=== PATIENT | male | born 1970 | race Two or more races ===

== ENCOUNTER 2020-06-20 16:52 | Inpatient (IN) | payer BC ==
[~2020-06-20] VITALS: Ht 177.8 cm; Wt 68.5 kg
[2020-06-20] MEDS ORDERED: IV NS 0.9% 1,000 ML BAG IV ONE (17:00)
[2020-06-20] MEDS ORDERED: LIDOCAINE 1%-EPI 1:100,000 20 ML VIAL ONE (17:05)
[2020-06-20 17:19] LABS: BASOPHILS % (AUTO) 0.3 % (0.0-2.0); EOSINOPHILS % (AUTO) 0.4 % (0.0-6.0); HEMATOCRIT 42 % (39-51); HEMOGLOBIN 13.7 g/dL (13.5-17.5); LYMPHOCYTES # (AUTO) 2.5 /CMM (0.8-4.8); LYMPHOCYTES % (AUTO) 21.2 % (20.0-44.0); MEAN CORPUSCULAR HGB CONC 33 g/dl (31.0-36.0); MEAN CORPUSCULAR VOLUME 91 fL (80-96); MONOCYTES # (AUTO) 0.5 /CMM (0.1-1.30); MONOCYTES % (AUTO) 3.8 % (2.0-12.0); NEUTROPHILS # (AUTO) 8.9 /CMM (1.8-8.9); NEUTROPHILS % (AUTO) 74.3 % (43.0-81.0); PLATELET COUNT (AUTO) 329 /CMM (150-450); RED BLOOD CELL COUNT(AUTO) 4.62 MIL/uL (4.5-6.0)
--- NOTE | 2020-06-20 17:20 | NUR ---
IV LINE ESTABLISHED BLOOD DRAWN AND SENT TO LAB.
[2020-06-20 17:29] LABS: CALCIUM, SERUM 9.4 mg/dL (8.5-10.1); CARBON DIOXIDE 24 mmol/L (21-32); CHLORIDE 97 mmol/L (98-107); CREATININE 0.9 mg/dL (0.6-1.3); GLUCOSE 337 mg/dL (74-106); POTASSIUM 3.6 mmol/L (3.5-5.1); SODIUM SERUM 137 mmol/L (136-145); UREA NITROGEN, BLOOD 9 mg/dL (7-18)
[2020-06-20 17:34] LABS: ALANINE AMINOTRANSFERASE 15 U/L (12-78); ALBUMIN 3.7 g/dL (3.4-5.0); ALCOHOL, BLOOD < 3 mg/dL (0-0); ALKALINE PHOSPHATASE 124 U/L (46-116); ASPARTATE AMINOTRANSFERASE 12 U/L (15-37); BILIRUBIN,DIRECT 0.1 mg/dL (0.0-0.2); BILIRUBIN,TOTAL 0.6 mg/dL (0.2-1.0)
[2020-06-20 17:35] LABS: ACETAMINOPHEN < 0 ug/ml (10-30)
--- NOTE | 2020-06-20 18:27 | NUR ---
covid swab done and sent to the lab
--- NOTE | 2020-06-20 19:21 | NUR ---
REPORT GIVEN TO MADYSON ZAZUETA FOR [facility]
--- NOTE | 2020-06-20 19:37 | NUR ---
AWAITING FOR PT TO PROVIDE URINE SAMPLE
--- NOTE | 2020-06-20 19:39 | NUR ---
RADIOLOGY AT BEDSIDE
--- NOTE | 2020-06-20 20:11 | NUR ---
URINE COLLECTED, SENT TO LAB.
[2020-06-20 20:15] LABS: BILIRUBIN,URINE SMALL (NEGATIVE); COLOR,URINE YELLOW (YELLOW); LEUKOCYTE ESTERASE ,URINE Negative (NEGATIVE); NITRITE, URINE Negative (NEGATIVE); PROTEIN,URINE Trace mg/dl (NEGATIVE); UGLUCOSE 500 MG/DL mg/dL (NEGATIVE); UROBILINOGEN,URINE 0.2 EU/dL (0.2)
[2020-06-20 20:27] LABS: BACTERIA,URINE Few /HPF (None Seen); MUCUS,URINE Many /LPF (None Seen); RBC,URINE 0-2 /HPF (0-2); SQUAMOUS EPITHELIAL CELL,UR Few /HPF (None Seen); WBC,URINE 0-2 /HPF (0-3)
--- NOTE | 2020-06-20 20:44 | NUR ---
SPOKE TO PT'S BROTHER REGARDING PLAN OF CARE. PT GAVE CONSENT.
--- NOTE | 2020-06-20 23:09 | NUR ---
REPORT GIVEN TO RN FOR [facility].
--- NOTE | 2020-06-20 23:44 | NUR ---
PT TRANSFERED PER ACLS PROTOCOL
[2020-06-21] VITALS: BP 129/79
[2020-06-21 00:03] VITALS: BP 129/79
--- NOTE | 2020-06-21 00:52 | NUR ---
RN NOTES PT ALERT ORIENTED X4 NO PAIN OR DISCOMFORT NOTED OR REPORTED AT THIS TIME. PT ON ROOM AIR TOLERATING WELL. PT ON TELE MONITOR WITH SR. PT HAS SITTER AT BEDSIDE. ALL NURSING NEEDS MET AT THIS TIME.PT HAS IV ACCESS ON THE RIGHT HAND 20G FLUSHING WELL INTACT TO REDNESS OF SWELLING AT SITE. PT ABDOMEN IS SOFT NON TENDER BOWEL SOUNDS HEARD IN ALL 4 QUADRANTS UPON AUSCULTATION. PT DENIES ANY SUICIDAL IDEATION AT THIS TIME. PT STATED " NOT RIGHT AT THIS MOMENT... NO I DON'T WANT TO " PT HAS A SELF INFLICTED LEFT WRIST LACERATION WITH PRESSURE DRESSING APPLIED NO PHOTOS WERE ABLE TO BE TAKEN AT THIS TIME. PT ORIENTED TO ROOM SAFETY MEASURES FOLLOWED. WILL CONTINUE TO MONITOR.
[2020-06-21] MEDS ORDERED: MAG HYDROX/AL HYDROX/SIMETH 30 ML UDC PO PRN (03:00)
[2020-06-21] MEDS ORDERED: ONDANSETRON HCL/PF 4 MG/2 ML VIAL IVP PRN (03:00)
[2020-06-21] MEDS ORDERED: Z GUARD REMEDY 2 OZ OINT TP PRN (03:00)
[2020-06-21] MEDS ORDERED: ACETAMINOPHEN 325 MG TABLET PO PRN (03:00)
[2020-06-21] MEDS ORDERED: DEXTROSE 50%-WATER 50 ML DISP.SYRIN IV PRN (03:00)
[2020-06-21] MEDS ORDERED: MAGNESIUM HYDROXIDE 30 ML UDC PO PRN (03:00)
[2020-06-21] MEDS ORDERED: ZOLPIDEM TARTRATE 5 MG TABLET PO PRN (03:00)
[2020-06-21 04:00] VITALS: BP 136/84
[2020-06-21] MEDS: INSULIN REGULAR, HUMAN 100 UNIT/ML 3 ML VIAL SQ PRN ×4 (06:56→21:44)
[2020-06-21] MEDS: BLOOD SUGAR DIAGNOSTIC 1 EACH STRIP IN SCH ×4 (06:56→21:42)
--- NOTE | 2020-06-21 07:00 | NUR ---
RN NOTES PT ALERT ORIENTED X4 NO PAIN OR DISCOMFORT NOTED OR REPORTED AT THIS TIME. PT ON ROOM AIR TOLERATING WELL. PT ON TELE MONITOR WITH SR. PT HAS SITTER AT BEDSIDE. ALL NURSING NEEDS MET AT THIS TIME.PT HAS IV ACCESS ON THE RIGHT HAND 20G FLUSHING WELL INTACT TO REDNESS OF SWELLING AT SITE. PT DENIES ANY SUICIDAL IDEATION AT THIS TIME. PT STATED " NO I DON'T WANT TO ANYMORE" PT HAS A SELF INFLICTED LEFT WRIST LACERATION WITH PRESSURE DRESSING APPLIED. PT ORIENTED TO ROOM SAFETY MEASURES FOLLOWED. WILL CONTINUE TO MONITOR.
--- NOTE | 2020-06-21 08:00 | NUR ---
RN OPENING NOTE RECEIVED PATIENT IN BED, AO X 2, ABLE TO RESPONDS ALL STIMULI. SKIN IS WARM TO TOUCH, KEEP CLEAN/DRY, INTACT IV SITE. RESPIRATORY EVEN AND UNLABORED WITH OXYGEN AT 2PLM. KEPT ELEVATED HOB FOR ENSURE AIRWAY AND ASPIRATION PRECAUTION, ALSO LOWEST BED POSITION FOR SAFETY. CALL LIGHT WITHIN REACH, WILL CONTINUE TO MONITOR. Addendum: 06/21/20 at 0809 by KYLE AGRAWAL RN ERROR
--- NOTE | 2020-06-21 08:10 | NUR ---
RN OPENING NOTE RECEIVED PATIENT IN BED RESTING, AO X 4, ABLE TO RESPONDS ALL STIMULI. SKIN IS WARM TO TOUCH, KEEP CLEAN/DRY, INTACT IV SITE. RESPIRATORY EVEN AND UNLABORED OM ROOM AIR. NO IS/IH OBSERVED AT THIS TIME, SITTER AT BED SIDE. KEPT ELEVATED HOB FOR ENSURE AIRWAY AND ASPIRATION PRECAUTION, ALSO LOWEST BED POSITION FOR SAFETY. CALL LIGHT WITHIN REACH, WILL CONTINUE TO MONITOR.
[2020-06-21] MEDS ORDERED: ETAN50PE3 SQ (08:40)
[2020-06-21] MEDS ORDERED: TRAZ-252 PO (08:40)
[2020-06-21] MEDS ORDERED: QUET200T PO (08:40)
[2020-06-21] MEDS ORDERED: CLON0.5T4 PO (08:40)
[2020-06-21] MEDS ORDERED: clonazePAM 0.5 MG TABLET PO PRN (10:00)
--- NOTE | 2020-06-21 18:16 | NUR ---
RN CLOSE NOTE PATIENT IN BED, AO X 4, DOES NO APPEARS DISTRESS OR PAIN. SKIN IS WARM TO TOUCH, KEEP CLEAN/DRY, INTACT IV SITE ON RIGHT BOND G 20 WITH SL. RESPIRATORY EVEN AND UNLABORED ON ROOM AIR. SITTER AT BEDSIDE, NO SI/HI OBSERVED DURING DAYTIME. KEPT ELEVATED HOB FOR ENSURE AIRWAY AND ASPIRATION PRECAUTION AND LOWEST BED POSITION FOR SAFETY. CALL LIGHT WITHIN REACH, WILL CONTINUE TO MONITOR.
[2020-06-21] MEDS: DIVALPROEX SODIUM 250 MG TABLET.DR PO SCH (18:31)
--- NOTE | 2020-06-21 19:25 | NUR ---
RN NOTES PATIENT IN BED, AO X 4, DOES NO APPEARS DISTRESS OR PAIN. SKIN IS WARM TO TOUCH, KEEP CLEAN/DRY, INTACT IV SITE ON RIGHT BOND G 20 WITH SL. RESPIRATORY EVEN AND UNLABORED ON ROOM AIR. SITTER AT BEDSIDE, NO SI/HI OBSERVED AT THIS TIME PT STATED " IM FEELING BETTER TODAY". KEPT ELEVATED HOB FOR ENSURE AIRWAY AND ASPIRATION PRECAUTION AND LOWEST BED POSITION FOR SAFETY. CALL LIGHT WITHIN REACH, WILL CONTINUE TO MONITOR.
[2020-06-21 20:00] VITALS: BP 116/66
[2020-06-21 22:00] VITALS: BP 116/78
[2020-06-21] MEDS ORDERED: QUETIAPINE FUMARATE 100 MG TABLET PO SCH (22:00)
[2020-06-21] MEDS ORDERED: TRAZODONE 50 MG TABLET PO SCH (22:00)
[2020-06-22] VITALS: BP_SYST 110; BP_SYST 120; BP_DIAS 60; BP_DIAS 75
[2020-06-22] MEDS: HYDROCODONE/APAP 5/325MG TABLET PO PRN ×3 (01:08→15:51)
[2020-06-22] MEDS ORDERED: LORAZEPAM INJ 2 MG/ML VIAL IV PRN (01:30)
[2020-06-22 04:00] VITALS: BP 98/65
[2020-06-22 04:19] VITALS: BP 101/69
--- NOTE | 2020-06-22 06:32 | NUR ---
RN NOTES PATIENT IN BED, AO X 4, DOES NO APPEARS DISTRESS OR PAIN. SKIN IS WARM TO TOUCH, KEEP CLEAN/DRY, INTACT IV SITE ON RIGHT BOND G 20 WITH SL. RESPIRATORY EVEN AND UNLABORED ON ROOM AIR. SITTER AT BEDSIDE, NO SI/HI OBSERVED AT THIS TIME.. KEPT ELEVATED HOB FOR ENSURE AIRWAY AND ASPIRATION PRECAUTION AND LOWEST BED POSITION FOR SAFETY. CALL LIGHT WITHIN REACH, WILL ENDORSE CARE TO DAY SHIFT NURSE.
[2020-06-22] MEDS: BLOOD SUGAR DIAGNOSTIC 1 EACH STRIP IN SCH ×2 (06:51→11:32)
[2020-06-22] MEDS: INSULIN REGULAR, HUMAN 100 UNIT/ML 3 ML VIAL SQ PRN ×2 (06:52→11:32)
[2020-06-22 07:20] LABS: BASOPHILS # (AUTO) 0.1 /CMM (0.0-0.2); BASOPHILS % (AUTO) 0.6 % (0.0-2.0); HEMATOCRIT 34 % (39-51); HEMOGLOBIN 10.8 g/dL (13.5-17.5); LYMPHOCYTES # (AUTO) 5.2 /CMM (0.8-4.8); MEAN CORPUSCULAR HGB CONC 32 g/dl (31.0-36.0); MEAN CORPUSCULAR VOLUME 94 fL (80-96); MONOCYTES # (AUTO) 0.6 /CMM (0.1-1.30); MONOCYTES % (AUTO) 6.3 % (2.0-12.0); NEUTROPHILS # (AUTO) 3.9 /CMM (1.8-8.9); NEUTROPHILS % (AUTO) 39.1 % (43.0-81.0); PLATELET COUNT (AUTO) 218 /CMM (150-450); RED BLOOD CELL COUNT(AUTO) 3.56 MIL/uL (4.5-6.0); WHITE BLOOD COUNT (AUTO) 9.9 K/uL (4.3-11.0)
[2020-06-22] MEDS: DIVALPROEX SODIUM 250 MG TABLET.DR PO SCH (08:16)
[2020-06-22 08:19] LABS: CALCIUM, SERUM 8.6 mg/dL (8.5-10.1); CREATININE 0.7 mg/dL (0.6-1.3); PHOSPHORUS 4.6 mg/dL (2.5-4.9); POTASSIUM 3.9 mmol/L (3.5-5.1)
[2020-06-22 08:29] LABS: THYROID STIMULATING HORMONE 2.141 uIU/mL (0.358-3.74)
--- NOTE | 2020-06-22 10:27 | NUR ---
WOUND CARE CONSULT: PT PRESENTS WITH LEFT WRIST SUTURED LACERATION AND SMALL OPEN AREA DISTAL TO SUTURED AREA, PRESENT ON ADMISSION. RECOMMEND SURGICAL CONSULT. DR MAX NOTIFIED OF CONSULT REQUEST. NO ACTIVE BLEEDING NOTED AT THIS TIME. AREA PROTECTED WITH FOAM DRESSING AND KERLIX WRAP TIL SEEN BY SURGEON. MD IN AGREEMENT WITH PLAN OF CARE.
[2020-06-22] MEDS ORDERED: QUETIAPINE FUMARATE 25 MG TABLET PO SCH (13:00)
[2020-06-22] MEDS ORDERED: DIVALPROEX SODIUM 500 MG TABLET.DR PO SCH (22:00)
[2020-06-23] MEDS ORDERED: INSU100V3 SQ (07:25)
[2020-06-23] MEDS ORDERED: MAG30ORA PO (07:25)
[2020-06-23] MEDS ORDERED: HYDR-4209 PO (07:25)
[2020-06-23] MEDS ORDERED: DIVA-76 PO (07:25)
[2020-06-23] MEDS ORDERED: BLOO-668 IN (07:25)
[2020-06-23] MEDS ORDERED: QUET25TA PO (07:25)
[2020-06-23] MEDS ORDERED: ALLA266C2 TP (07:25)
[2020-06-23] MEDS ORDERED: ACET-868 PO (07:25)
[2020-06-23] MEDS ORDERED: MAGN400O6 PO (07:25)
[2020-06-23] MEDS ORDERED: DIVA-78 PO (07:25)
[2020-06-23] MEDS ORDERED: DEXT50DI8 IV (07:25)
[2020-06-23] MEDS ORDERED: DIVALPROEX SODIUM 250 MG TABLET.DR PO SCH (08:00)
== END 2020-06-22 15:47 | DRG 605 ==
LOC: ER 16:55 → TELE 23:06 → MED 06-22 14:03 → GPS 06-22 15:34 → MED 06-22 15:39
PROVIDERS: ADMIT Internal Medicine; ATTEND Internal Medicine
PROC: 0HQEXZZ Repair Left Lower Arm Skin, External Approach (ICD-10-PCS; principal; 2020-06-20)
DX: S61.512A Laceration without foreign body of left wrist, initial encounter (principal); R45.851 Suicidal ideations; X78.1XXA Intentional self-harm by knife, initial encounter; Y92.039 Unspecified place in apartment as the place of occurrence of the external cause; M45.9 Ankylosing spondylitis of unspecified sites in spine; F41.9 Anxiety disorder, unspecified; F31.9 Bipolar disorder, unspecified; Z20.822 Contact with and (suspected) exposure to COVID-19
CPT/HCPCS: 36415; 70450-TC; 71045-TC; 80048-TC; 80061-TC; 80076-TC; 81001; 82962-TC; 83735-TC; 84100-TC; 84443-TC; 85025-TC; 85730-TC; 87081-TC; A6403; C9803; G0378; G0480; J1815; J3490; J7030

== ENCOUNTER 2020-06-22 15:43 | Inpatient (IN) | payer BC, OTHER ==
[~2020-06-22] VITALS: Ht 177.8 cm; Wt 68.5 kg
[~2020-06-22 15:43] MED LIST: CLON0.5T4 PO; ETAN50PE3 SQ; QUET200T PO; TRAZ-252 PO
[2020-06-22] MEDS ORDERED: MAG HYDROX/AL HYDROX/SIMETH 30 ML UDC PO PRN (16:30)
[2020-06-22] MEDS ORDERED: MAGNESIUM HYDROXIDE 30 ML UDC PO PRN (16:30)
[2020-06-22] MEDS ORDERED: LORAZEPAM 0.5 MG TABLET PO PRN (16:30)
[2020-06-22] MEDS ORDERED: BLOOD SUGAR DIAGNOSTIC 1 EACH STRIP IN ONE (16:30)
--- NOTE | 2020-06-22 18:24 | NUR ---
ADMITTED A 50Y/O MALE FROM MED SURGE UNIT . PER 5150 HOLD PATIENT ADMITTED TO [facility] UNIT DUE TO SELF INFLICTED WOUND TO LEFT FA . PATIENT ADMITTING DX BIPOLAR DISORDER . HX OF ANKYLOSING SPONDYLITIS . UPON FACE TO FACE EVALUATION, PATIENT APPEARED ALERT AND ORIENTED X 3, CALM, MOOD DEPRESSED,PATIENT DENIES SUICIDAL THOUGHTS AT THIS TIME.PATIENT HAS WOUND IN HIS LEFT FOREARM WITH 12 SUTURES ,RIGHT ARM DEFORM , NO AGITATION AT THIS TIME ,FLAT AFFECT . HEAD TO TOE ASSESSMENT DONE. PATIENT SIGNED ALL CONSENT PAPER WORKS. NO SOB, NO ACUTE DISTRESS, BREATHING EVEN AND UNLABORED, NO S/S OF PAIN AND DISCOMFORT. PATIENT IS UNDER THE CARE OF DR. FRIAS AND DR. CHENEY AND AWARE OF ADMISSION WITH ADMISSION ORDERS . BELONGINGS COLLECTED FOR CONTRABAND CHECK. NOTIFIED DR. CHENEY TO RECONCILE MEDICATION. NOTIFIED RESPONSIBLE REPUBLICAN OF THE ADMISSION. KEPT CLEAN, DRY AND COMFORTABLE. WILL CONTINUE TO MONITOR Q15 MINUTES FOR SAFETY.
[2020-06-22 20:08] VITALS: BP 98/55
--- NOTE | 2020-06-22 21:11 | NUR ---
GPS-RN NOTE: PATIENT BLOOD SUGAR WAS 267MG/DL AT 1745 PER AM SHIFT REPORT. SPOKE WITH DR. GREY ORDERS OBTAINED TO START MODERATE SLIDING SCALE ACHS AND CHECK HGB A1C IN AM, NOTED AND CARRIED OUT. Addendum: 06/22/20 at 2221 by ORTEGA JIANG RN DR. GREY ALSO MADE AWARE OF MED RECON TO RECONCILE.
[2020-06-22] MEDS ORDERED: DEXTROSE 50%-WATER 50 ML DISP.SYRIN IV PRN (21:30)
[2020-06-22] MEDS: BLOOD SUGAR DIAGNOSTIC 1 EACH STRIP VI SCH (22:02)
[2020-06-22] MEDS: *INSULIN REGULAR(HUMULIN R)HUM 100 UNIT/ML VIAL SQ PRN (22:05)
[2020-06-23] MEDS ORDERED: INSU100V3 SQ (07:25)
[2020-06-23] MEDS ORDERED: QUET25TA PO (07:25)
[2020-06-23] MEDS ORDERED: ACET-868 PO (07:25)
[2020-06-23] MEDS ORDERED: HYDR-4209 PO (07:25)
[2020-06-23] MEDS ORDERED: DIVA-78 PO (07:25)
[2020-06-23] MEDS ORDERED: DEXT50DI8 IV (07:25)
[2020-06-23] MEDS ORDERED: DIVA-76 PO (07:25)
[2020-06-23] MEDS ORDERED: ALLA266C2 TP (07:25)
[2020-06-23] MEDS ORDERED: MAGN400O6 PO (07:25)
[2020-06-23] MEDS ORDERED: BLOO-668 IN (07:25)
[2020-06-23] MEDS ORDERED: MAG30ORA PO (07:25)
[2020-06-23] MEDS: BLOOD SUGAR DIAGNOSTIC 1 EACH STRIP VI SCH ×3 (07:40→16:46)
[2020-06-23 08:00] VITALS: BP 116/71
[2020-06-23 08:03] LABS: CHOLESTEROL 216 mg/dL (<200); HDL CHOLESTEROL 39 mg/dL (40-60); LDL 148 mg/dL (0-99); TRIGLYCERIDES 120 mg/dL (30-150)
[2020-06-23] MEDS: INSULIN REGULAR, HUMAN 100 UNIT/ML 3 ML VIAL SQ PRN ×3 (08:03→22:15)
[2020-06-23 08:49] LABS: ALBUMIN 3.3 g/dL (3.4-5.0); BILIRUBIN,TOTAL 0.5 mg/dL (0.2-1.0); CALCIUM, SERUM 8.9 mg/dL (8.5-10.1); CREATININE 0.7 mg/dL (0.6-1.3); POTASSIUM 3.8 mmol/L (3.5-5.1); TOTAL PROTEIN, SERUM 7.2 g/dL (6.4-8.2)
--- NOTE | 2020-06-23 10:41 | NUR ---
WOUND CARE CONSULT: PT PRESENTS WITH SUTURED LACERATION TO LEFT WRIST AND DISTAL OPEN AREA, PRESENT ON ADMISSION. PT SEEN BY TAHIR CAMERON SURGICAL PCassandraACassandra NEW WOUND CARE ORDERS RECEIVED AND DISCUSSED WITH NURSING STAFF. IN AGREEMENT WITH PLAN OF CARE.
[2020-06-23] MEDS: *INSULIN REGULAR(HUMULIN R)HUM 100 UNIT/ML VIAL SQ PRN (12:04)
[2020-06-23] MEDS: DIVALPROEX SODIUM 250 MG TABLET.DR PO SCH ×2 (12:55→16:34)
[2020-06-23] MEDS: QUETIAPINE FUMARATE 25 MG TABLET PO SCH ×2 (12:55→16:34)
[2020-06-23 16:00] VITALS: BP 107/75
[2020-06-23] MEDS ORDERED: DEXTROSE 50%-WATER 50 ML DISP.SYRIN IV PRN (19:30)
[2020-06-23 20:56] VITALS: BP 125/77
[2020-06-23] MEDS: TEMAZEPAM 7.5 MG CAPSULE PO PRN (21:13)
--- NOTE | 2020-06-23 21:22 | NUR ---
GPS RN NOTES: PT. REQUESTED SLEEP MED D/T INSOMNIA. RESTORIL 7.5MG/1TAB GIVEN PO PRN ORDERED AT 2112. WILL CONTINUE TO MONITOR.
[2020-06-23] MEDS: BLOOD SUGAR DIAGNOSTIC 1 EACH STRIP IN SCH (22:09)
[2020-06-23] MEDS: QUETIAPINE FUMARATE 100 MG TABLET PO SCH (22:10)
--- NOTE | 2020-06-24 06:40 | NUR ---
GPS RN CLOSING NOTES: PATIENT IS LAYING COMFORTABLY ON BED SLEEPING. PATIENT SLEPT 9HRS THIS SHIFT. MED COMPLIANT THIS SHIFT. NO S/S OF DISTRESS. RESPIRATION EVEN AND UNLABORED WITH EQUAL RISE AND FALL OF THE CHEST ON ROOM AIR. ALL PATIENT CARE NEEDS HAVE BEEN MET ANTICIPATED. WILL CONTINUE TO MONITOR FOR SAFETY, MOOD AND BEHAVIOR AND ENDORSE TO AM SHIFT.
[2020-06-24] MEDS: BLOOD SUGAR DIAGNOSTIC 1 EACH STRIP IN SCH ×4 (07:20→22:17)
[2020-06-24] MEDS: INSULIN REGULAR, HUMAN 100 UNIT/ML 3 ML VIAL SQ PRN ×4 (07:46→22:32)
[2020-06-24 08:00] VITALS: BP 119/77
[2020-06-24] MEDS: QUETIAPINE FUMARATE 25 MG TABLET PO SCH ×3 (08:26→16:35)
[2020-06-24] MEDS: DIVALPROEX SODIUM 250 MG TABLET.DR PO SCH ×3 (08:26→16:35)
--- NOTE | 2020-06-24 08:55 | NUR ---
RN NOTE-DRESSING CHANGE. REMOVED OLD DRESSING, SEROUS DRAINAGE PRESENT, MINIMAL DISCOMFORT STATED. NO DEHISCENCE, SUTURES INTACT AT PRESENT, NO ERYTHEMA, NO EDEMA, NO PURULENCE OR ODOR. PETROLEUM DSG APPLIED, TELFA AND WRAPPED SECURELY. TOLERATED WELL.
--- NOTE | 2020-06-24 09:00 | NUR ---
RN NOTE-PT ALERT ORIENTED TO PERSON PLACE PURPOSE DENIES ALL, BLUNTED AFFECT SEEMS PREOCCUPIED REFUSES TO DISCUSS SUICIDE ATTEMPT, PO INTAKE GOOD, MED COMPLIANT, DRSG CHANGE COMPLETED
--- NOTE | 2020-06-24 12:02 | NUR ---
Family Contact: SW called the pts uncle, Dr. Calloway ([phone]), and left a voicemail stating that the SW would like to speak to him regarding the pts discharge plan.
[2020-06-24] MEDS: ACETAMINOPHEN 325 MG TABLET PO PRN (15:31)
--- NOTE | 2020-06-24 15:32 | NUR ---
RN NOTE- C/O PAIN TO LEFT WRIST. TYLENOL 650 MG GIVEN
--- NOTE | 2020-06-24 15:50 | NUR ---
Initial Discharge Plan: Pt currently resides at home with his mother and father located at [address] [place] [address], [place] [address]; ([phone]). Per pt, he would like to return. SW will work with the pt and the MD regarding appropriate discharge planning. SW will form a safe and proper discharge.
[2020-06-24 16:00] VITALS: BP 112/71
[2020-06-24 20:25] VITALS: BP 101/62
[2020-06-24] MEDS: QUETIAPINE FUMARATE 100 MG TABLET PO SCH (22:04)
[2020-06-24] MEDS: TEMAZEPAM 7.5 MG CAPSULE PO PRN (22:34)
--- NOTE | 2020-06-24 22:35 | NUR ---
GPS RN NOTES: PT. REQUESTED SLEEP MED D/T INSOMNIA. RESTORIL 7.5MG/1TAB GIVEN PO PRN ORDERED AT 4. WILL CONTINUE TO MONITOR.
--- NOTE | 2020-06-25 03:50 | NUR ---
GPS RN NOTES: PATIENT BLOOD SUGAR HAS REMAINED MOSTLY IN THE 300'S. BRANDYN LOCOMOTIVE FIRER, CHANGED PATIENT SLIDING SCALE FROM MODERATE TO AGGRESSIVE ACHS AND LANTUS 10 UNITS HS. WILL CONTINUE TO MONITOR.
[2020-06-25] MEDS ORDERED: DEXTROSE 50%-WATER 50 ML DISP.SYRIN IV PRN (04:00)
--- NOTE | 2020-06-25 06:29 | NUR ---
GPS RN CLOSING NOTES: PATIENT IS CURRENTLY SLEEPING. PATIENT SLEPT 7HRS THIS SHIFT. MED COMPLIANT THIS SHIFT. NO S/S OF DISTRESS. RESPIRATION EVEN AND UNLABORED WITH EQUAL RISE AND FALL OF THE CHEST ON ROOM AIR. ALL PATIENT CARE NEEDS HAVE BEEN MET ANTICIPATED. BED IN LOWEST POSITION AND LOCKED WITH SIDE RAILS UP X2. WILL CONTINUE TO MONITOR FOR SAFETY, MOOD AND BEHAVIOR AND ENDORSE TO AM SHIFT.
[2020-06-25] MEDS: BLOOD SUGAR DIAGNOSTIC 1 EACH STRIP IN SCH ×4 (07:34→21:47)
[2020-06-25 08:00] VITALS: BP 115/67
[2020-06-25] MEDS: INSULIN REGULAR, HUMAN 100 UNIT/ML 3 ML VIAL SQ PRN ×3 (08:08→17:39)
[2020-06-25] MEDS: DIVALPROEX SODIUM 250 MG TABLET.DR PO SCH ×3 (08:09→17:02)
[2020-06-25] MEDS: QUETIAPINE FUMARATE 25 MG TABLET PO SCH ×3 (08:09→17:02)
--- NOTE | 2020-06-25 10:29 | NUR ---
UR Note: RAJAN called pts [employer] shoe caser, Harini ([phone] EXT [phone]), and provided a clinical on her voicemail to request additional authorization. Addendum: 06/29/20 at 1641 by RAJAN SIMPSON [id number]
--- NOTE | 2020-06-25 11:29 | NUR ---
UR Note: SW called pts [facility] major case detective, Harini ([phone] EXT [phone]), in response to her voicemail. SW provided additional information on the pt on her voicemail and is awaiting a call back on the pts authorization.
--- NOTE | 2020-06-25 12:09 | NUR ---
UR Note: Pts [employer] case management specialist, Harini ([phone] EXT [phone]), called the SW and authorized an additional 2 days from 06/25-06/26. She stated to call her coworker, Mari, for review at ([phone] ext [phone]) if additional authorization is needed. She stated that if the pt discharges then call the discharge line at [phone].
--- NOTE | 2020-06-25 13:32 | NUR ---
Group Note: SW encouraged the pt to attend group therapy on 06/25/20 at 1pm regarding the topic of discharge planning and the pt refused to attend. Pt has been isolating in his room and appears to be guarded. SW conducted an individual intervention with the pt and discussed his discharge plan back to his home. SW inquired about his family and the pt stated that he spoke with his brother and that he is aware his father was discharged to a rehabilitation center. SW then inquired about the pts suicidal ideation/attempt and the pt stated, "I do not want to go there." Pt refused to acknowledge his attempt and refused to think about what caused it. SW informed him that will hinder his treatment and that being in the hospital is the safest place for him to acknowledge his thoughts. Pt remained silent and guarded.
[2020-06-25 16:00] VITALS: BP 116/64
--- NOTE | 2020-06-25 17:20 | NUR ---
Dr. Parker and Dione made aware of the latest BP of 98/51 and SC 90 and with orders. Addendum: 06/25/20 at 1806 by ZEFERINO FERGUSON RN Above documentation is not for this pt.
[2020-06-25 19:45] VITALS: BP 106/68
[2020-06-25 20:00] VITALS: BP 106/68
--- NOTE | 2020-06-25 21:48 | NUR ---
RN NOTE PATIENT'S VITALS ARE 113/68, 76, 18, 97.5, 97% AT RA. SEROQUEL 425 MG PO ADMINISTERED. WILL CONTINUE TO MONITOR THE PATIENT FOR ANY CHANGES.
[2020-06-25] MEDS ORDERED: QUETIAPINE FUMARATE 100 MG TABLET PO SCH (22:00)
[2020-06-25] MEDS: INSULIN GLARGINE, 100 UNIT/ML CARTRIDGE SQ SCH (22:37)
[2020-06-25] MEDS: *INSULIN REGULAR(HUMULIN R)HUM 100 UNIT/ML VIAL SQ PRN (22:40)
[2020-06-25] MEDS: TEMAZEPAM 7.5 MG CAPSULE PO PRN (23:06)
--- NOTE | 2020-06-25 23:09 | NUR ---
GPS RN NOTE: INSOMNIA PT. REQUESTED SLEEPING MEDICINE D/T SLEEPLESSNESS. RESTORIL 7.5MG 1 CAP GIVEN PO PRN ORDERED. WILL CONTINUE TO MONITOR.
[2020-06-26 08:00] VITALS: BP 113/73
[2020-06-26] MEDS: BLOOD SUGAR DIAGNOSTIC 1 EACH STRIP IN SCH ×4 (08:08→22:06)
[2020-06-26] MEDS: DIVALPROEX SODIUM 250 MG TABLET.DR PO SCH ×3 (08:18→16:06)
[2020-06-26] MEDS: QUETIAPINE FUMARATE 25 MG TABLET PO SCH ×3 (08:18→16:06)
[2020-06-26] MEDS: INSULIN REGULAR, HUMAN 100 UNIT/ML 3 ML VIAL SQ PRN ×3 (08:21→17:27)
--- NOTE | 2020-06-26 10:47 | NUR ---
UR Note: RAJAN called [facility] clinical case manager, Mari ([phone]), who is covering for Harini, and left a clinical on her voicemail requesting additional authorization to cover the and Monday if possible.
--- NOTE | 2020-06-26 11:42 | NUR ---
RN-NOTES DID WOUND DRESSING CHANGE ON LEFT HAND WOUND AND COMPLAINED OF PAIN. OFFERED TYLENOL BUT PATIENT STATED" I'M OK I DON'T NEED IT".
[2020-06-26 16:00] VITALS: BP 120/77
[2020-06-26 20:05] VITALS: BP 115/65
[2020-06-26] MEDS: QUETIAPINE FUMARATE 100 MG TABLET PO SCH (21:44)
[2020-06-26] MEDS: INSULIN GLARGINE, 100 UNIT/ML CARTRIDGE SQ SCH (22:14)
[2020-06-26] MEDS: *INSULIN REGULAR(HUMULIN R)HUM 100 UNIT/ML VIAL SQ PRN (22:20)
[2020-06-26] MEDS: TEMAZEPAM 7.5 MG CAPSULE PO PRN (22:24)
--- NOTE | 2020-06-26 22:34 | NUR ---
GPS RN NOTES: PT. REQUESTED SLEEP MED D/T INSOMNIA. RESTORIL 7.5MG/1TAB GIVEN PO PRN ORDERED AT 4 WILL CONTINUE TO MONITOR.
[2020-06-27 06:42] LABS: BASOPHILS % (AUTO) 0.2 % (0.0-2.0); EOSINOPHILS % (AUTO) 2.9 % (0.0-6.0); HEMATOCRIT 30 % (39-51); HEMOGLOBIN 10.1 g/dL (13.5-17.5); LYMPHOCYTES # (AUTO) 2.9 /CMM (0.8-4.8); LYMPHOCYTES % (AUTO) 34.9 % (20.0-44.0); MEAN CORPUSCULAR HGB CONC 33 g/dl (31.0-36.0); MEAN CORPUSCULAR VOLUME 93 fL (80-96); MONOCYTES # (AUTO) 0.5 /CMM (0.1-1.30); MONOCYTES % (AUTO) 6.1 % (2.0-12.0); NEUTROPHILS # (AUTO) 4.7 /CMM (1.8-8.9); NEUTROPHILS % (AUTO) 55.9 % (43.0-81.0); PLATELET COUNT (AUTO) 296 /CMM (150-450); RED BLOOD CELL COUNT(AUTO) 3.27 MIL/uL (4.5-6.0); WHITE BLOOD COUNT (AUTO) 8.4 K/uL (4.3-11.0)
[2020-06-27 07:10] LABS: ALBUMIN 2.9 g/dL (3.4-5.0); BILIRUBIN,TOTAL 0.6 mg/dL (0.2-1.0); CALCIUM, SERUM 8.8 mg/dL (8.5-10.1); CREATININE 0.7 mg/dL (0.6-1.3); POTASSIUM 3.9 mmol/L (3.5-5.1); TOTAL PROTEIN, SERUM 6.7 g/dL (6.4-8.2)
[2020-06-27 08:17] VITALS: BP 103/64
[2020-06-27] MEDS: BLOOD SUGAR DIAGNOSTIC 1 EACH STRIP IN SCH ×4 (08:55→21:58)
[2020-06-27] MEDS: INSULIN REGULAR, HUMAN 100 UNIT/ML 3 ML VIAL SQ PRN ×3 (09:09→17:27)
[2020-06-27] MEDS: QUETIAPINE FUMARATE 25 MG TABLET PO SCH ×3 (09:32→17:41)
[2020-06-27] MEDS: DIVALPROEX SODIUM 250 MG TABLET.DR PO SCH ×3 (09:32→17:41)
[2020-06-27 15:58] VITALS: BP 97/51
--- NOTE | 2020-06-27 18:40 | NUR ---
COOPERative and med compliant.
--- NOTE | 2020-06-27 20:39 | NUR ---
RN NOTES: EXPLAINED TO HIM WE NEED TO CHANGE HIS DRESSING ON THE LEFT WRIST, HE AGREED,DRESSING CHANGE, TOLERATED, NO SIGN OF AGITATION, VERY COOPERATIVE. Addendum: 06/27/20 at 2041 by JESICA GUTIERREZ RN ADDED NOTES: HE ASK FOR SOME SNACK, DIABETIC DIET OBSERVED, ASPIRATION PRECAUTION OBSERVED.
[2020-06-27 20:55] VITALS: BP 101/67
[2020-06-27] MEDS: QUETIAPINE FUMARATE 100 MG TABLET PO SCH (21:58)
[2020-06-27] MEDS: INSULIN GLARGINE, 100 UNIT/ML CARTRIDGE SQ SCH (21:59)
[2020-06-27] MEDS: TEMAZEPAM 7.5 MG CAPSULE PO PRN (22:27)
--- NOTE | 2020-06-27 22:27 | NUR ---
RN NOTES: REQUEST TO GET HIS SLEEPING PILL, HE WANTS TO SLEEP.GIVEN PER PATIENT REQUEST.
--- NOTE | 2020-06-28 01:29 | NUR ---
RN NOTES: HE WAS AWAKE, SNACK GIVEN PER PATIENT REQUEST, ENCOURAGE TO GO BACK TO SLEEP AFTER HIS SNACK, NO SIGN OF AGITATION OR RESTLESSNESS.
--- NOTE | 2020-06-28 02:23 | NUR ---
RN NOTES: -AT AROUND 2129 BS-205, HE REFUSED FOR INSULIN SLIDING SCALE. -AT 2209 HE AGREED FOR LANTUS.
[2020-06-28] MEDS: BLOOD SUGAR DIAGNOSTIC 1 EACH STRIP IN SCH ×4 (07:54→22:14)
[2020-06-28 08:00] VITALS: BP 122/80
[2020-06-28] MEDS: INSULIN REGULAR, HUMAN 100 UNIT/ML 3 ML VIAL SQ PRN ×3 (08:08→17:07)
[2020-06-28] MEDS: QUETIAPINE FUMARATE 25 MG TABLET PO SCH ×3 (08:42→16:50)
[2020-06-28] MEDS: DIVALPROEX SODIUM 250 MG TABLET.DR PO SCH ×3 (08:42→16:50)
--- NOTE | 2020-06-28 11:16 | NUR ---
RN-CO: BLOOD SUGAR AC LUNCH-199. Addendum: 06/28/20 at 1120 by SOFIE DALTON RN RN-CO: 4 UNITS OF REGULAR INSULIN GIVEN.
[2020-06-28 16:00] VITALS: BP 96/64
[2020-06-28 20:00] VITALS: BP 112/74
[2020-06-28] MEDS: QUETIAPINE FUMARATE 100 MG TABLET PO SCH (21:12)
[2020-06-28] MEDS: TEMAZEPAM 7.5 MG CAPSULE PO PRN (22:10)
--- NOTE | 2020-06-28 22:11 | NUR ---
GPS RN NOTE: INSOMNIA PT. REQUESTED SLEEPING MEDICINE D/T SLEEPLESSNESS. RESTORIL 7.5MG 1 CAP GIVEN PO PRN ORDERED. WILL CONTINUE TO MONITOR.
[2020-06-28] MEDS: INSULIN GLARGINE, 100 UNIT/ML CARTRIDGE SQ SCH (22:19)
[2020-06-28] MEDS: *INSULIN REGULAR(HUMULIN R)HUM 100 UNIT/ML VIAL SQ PRN (22:21)
--- NOTE | 2020-06-29 06:15 | NUR ---
RN NOTE: LEFT WRIST DRESSING DONE PATIENT IS AWAKE, LEFT WRIST DRESSING DONE ORDERED. PICTURE TAKEN & PLACED IN CHART.
[2020-06-29] MEDS: BLOOD SUGAR DIAGNOSTIC 1 EACH STRIP IN SCH ×4 (07:31→22:05)
[2020-06-29] MEDS: INSULIN REGULAR, HUMAN 100 UNIT/ML 3 ML VIAL SQ PRN ×4 (07:34→22:04)
[2020-06-29 08:00] VITALS: BP 111/71
[2020-06-29] MEDS: QUETIAPINE FUMARATE 25 MG TABLET PO SCH ×3 (08:00→16:33)
[2020-06-29] MEDS: DIVALPROEX SODIUM 250 MG TABLET.DR PO SCH ×3 (08:00→16:33)
--- NOTE | 2020-06-29 08:24 | NUR ---
UR Note: [employer] reproduction production manager, Mari ([phone]), contacted the SW and left a voicemail stating that the pt is authorized from 06/27-06/29 with review due on 07/02.
--- NOTE | 2020-06-29 13:58 | NUR ---
Family Contact: SW called the pts uncle, Dr. Calloway ([phone]), and left a voicemail stating that the pt is going to be discharged tomorrow and the SW would like to discuss the plan with him.
[2020-06-29 16:00] VITALS: BP 116/77
--- NOTE | 2020-06-29 16:35 | NUR ---
Family Contact: SW contacted the pts brother, Camilo ([phone]), and discussed at length the discrepancies between what the pt has informed the staff and what the reality of the situation is. Pts brother stated that the pt can come him if he agrees to certain conditions and states that he wants a family session the following morning to discuss the situation. SW stated that she will call him around 8:15 with the pt to discuss the situation.
--- NOTE | 2020-06-29 16:41 | NUR ---
UR Note: SW called pts [employer] renal case manager, Harini ([phone] EXT [phone]), and left a voicemail stating that the SW is going to need aftercare referrals for this pt.
[2020-06-29 20:00] VITALS: BP 117/68
--- NOTE | 2020-06-29 21:23 | NUR ---
RN NOTES, PATIENT WITH INABILITY TO SLEEP, AND ASKING FOR RESTORIL MEDICATION.
[2020-06-29] MEDS: QUETIAPINE FUMARATE 100 MG TABLET PO SCH (21:39)
[2020-06-29] MEDS: TEMAZEPAM 7.5 MG CAPSULE PO PRN (21:43)
[2020-06-29] MEDS: INSULIN GLARGINE, 100 UNIT/ML CARTRIDGE SQ SCH (22:05)
[2020-06-30] MEDS: ACETAMINOPHEN 325 MG TABLET PO PRN ×2 (01:16→01:37)
[2020-06-30] MEDS ORDERED: HYDROCODONE/APAP 5/325MG TABLET PO PRN (01:30)
[2020-06-30 06:00] VITALS: BP 117/68
[2020-06-30] MEDS: BLOOD SUGAR DIAGNOSTIC 1 EACH STRIP IN SCH ×4 (07:37→21:44)
[2020-06-30] MEDS: INSULIN REGULAR, HUMAN 100 UNIT/ML 3 ML VIAL SQ PRN ×2 (07:39→17:19)
[2020-06-30 08:00] VITALS: BP 120/72
[2020-06-30] MEDS: QUETIAPINE FUMARATE 25 MG TABLET PO SCH ×3 (08:15→17:21)
[2020-06-30] MEDS: DIVALPROEX SODIUM 250 MG TABLET.DR PO SCH ×3 (08:15→17:21)
--- NOTE | 2020-06-30 08:20 | NUR ---
Family Contact: SW contacted the pts brother, Camilo ([phone]), and informed him that the SW was ready for the family meeting. Pts brother informed the SW that he had a lengthy conversation with the pt after the SW left the previous day. He stated that the pt was agreeing to all the terms that were being asked of him and showed appropriate insight. Pts brother stated that after that conversation he reached out to the Calender Supervisor of [facility] who stated that he will take the pt. Pts brother informed him to steel pickler the pt around 11am. SW stated that she needed to speak to the MD as this is a change in the plan.
--- NOTE | 2020-06-30 10:00 | NUR ---
MD Contact: RAJAN contacted the pts MD, Dr Parker, and informed her of the plan set by the pts brother. MD stated that she wants to evaluate the pt but he will not be discharged today based off of the information that was presented to her.
--- NOTE | 2020-06-30 10:57 | NUR ---
Family Contact: RAJAN contacted the pts brother, Camilo ([phone]), and informed him that she spoke to the pts MD and stated that there are concerns with discharging the pt today. Pts brother became angry and stated that keeping him in the hospital is going to harm the pt more than benefit him. SW attempted to explain that a lot happened in terms of planning for the pt after she left the hospital the previous day and the MD has not had the chance to evaluate the pt today. RAJAN stated that she will provide the MD with all of the information of what is occurring and it will be her decision of when the pt will be discharged. Pts brother stated that he felt this was unprofessional to change the discharge but SW stated that the plan for discharge was going to be discussed at the family meeting today which implies the pt is not discharging today. RAJAN stated that the primary focus is to ensure that the pt is stable.
--- NOTE | 2020-06-30 11:10 | NUR ---
[facility] Contact: RAJAN called Dr. Delfino Amaya ([phone]) who is the program services planner of [facility]. RAJAN informed him that the pt may not be discharged today and apologized that the pts brother arranged everything without consulting the SW. stated that he understands and believes that the pt should not be discharged early and should stay in the hospital as long as it is appropriate. He stated that once the pt is ready for discharge to send a clinical to the e fax number: [phone]. He stated that he will arrange for the pt to be picked up whenever the MD clears the pt for discharge.
--- NOTE | 2020-06-30 11:16 | NUR ---
Individual Intervention: SW met with the pt in the hallway and informed him that he may not be discharged today and a lot of information was presented about his treatment the following day and the MD has not been able to evaluate him since then. SW stated that this is not a punishment for him and instead a measure to ensure his stability before he is discharged. SW informed him that she has been in contact with Dr. Delfino Amaya ([phone]) who was made aware. Pt stated that he wants to be discharged as soon as possible due to the condition with his father.
--- NOTE | 2020-06-30 11:30 | NUR ---
MD Intervention: MD Dr Parker, RAJAN and the pt met in the pts bedroom to discuss the pts treatment plan. It was discussed that the pt had been providing misinformation regarding his discharge plan that the SW became aware of when she called the pts family to set up the discharge. It was discussed with the pt that he must stop pressuring everyone to be discharged and has to accept his treatment otherwise there will be hesitancy towards his discharge. Pt stated that the reason he was pushing for his discharge was that he can go see his father who is in the hospital on life support. Pt stated that the web developer programmer is the one who will take him to see his father and it was expressed that the pt would need to be stable before that happens. Pts MD stated that she is planning to increase his medications and will attempt to discharge him tomorrow or the following day. Pt nodded to show understanding but the pts affect appeared to be distressed.
--- NOTE | 2020-06-30 11:45 | NUR ---
MD and Family Contact: SW contacted the pts brother, Camilo ([phone]), with the pts MD, Dr. Parker. It was discussed with the pts brother that the pt is not stable for discharge at this time based off of his impaired reality, manipulation, and his focus on his discharge. informed the pts brother that the pts medications will be increased and that the pts health program analyst has been involved and has accepted the discharge date that the hospital will set. Pts brother thanked the MD and RAJAN for working with the pt and stated that he would like the staff to work with the treatment program that the pt will be discharged to.
--- NOTE | 2020-06-30 12:01 | NUR ---
UR Note: SW called pts [employer] child support case officer, Harini ([phone] EXT [phone]), and provided a clinical on her voicemail to request additional authorization for 2 days. [id number].
[2020-06-30 16:00] VITALS: BP 120/76
[2020-06-30 20:00] VITALS: BP 131/77
[2020-06-30] MEDS: QUETIAPINE FUMARATE 100 MG TABLET PO SCH (21:34)
[2020-06-30] MEDS: *INSULIN REGULAR(HUMULIN R)HUM 100 UNIT/ML VIAL SQ PRN (21:55)
[2020-06-30] MEDS: INSULIN GLARGINE, 100 UNIT/ML CARTRIDGE SQ SCH (21:59)
[2020-07-01] MEDS: TEMAZEPAM 7.5 MG CAPSULE PO PRN ×2 (00:30→22:05)
--- NOTE | 2020-07-01 00:30 | NUR ---
RN notes Pt is having insomnia and requesting a sleeping pill. Administered restoril 7.5 mg/po/prn as ordered for sleeping per pt requested. Safety precautions is maintained. Will continue to monitor.
[2020-07-01 06:23] LABS: BASOPHILS % (AUTO) 0.1 % (0.0-2.0); EOSINOPHILS % (AUTO) 2.4 % (0.0-6.0); HEMATOCRIT 31 % (39-51); LYMPHOCYTES # (AUTO) 2.9 /CMM (0.8-4.8); LYMPHOCYTES % (AUTO) 37.8 % (20.0-44.0); MEAN CORPUSCULAR HGB CONC 33 g/dl (31.0-36.0); MEAN CORPUSCULAR VOLUME 94 fL (80-96); MONOCYTES # (AUTO) 0.6 /CMM (0.1-1.30); MONOCYTES % (AUTO) 7.8 % (2.0-12.0); NEUTROPHILS # (AUTO) 3.9 /CMM (1.8-8.9); NEUTROPHILS % (AUTO) 51.9 % (43.0-81.0); PLATELET COUNT (AUTO) 333 /CMM (150-450); RED BLOOD CELL COUNT(AUTO) 3.27 MIL/uL (4.5-6.0); WHITE BLOOD COUNT (AUTO) 7.6 K/uL (4.3-11.0)
[2020-07-01 06:59] LABS: ALBUMIN 2.9 g/dL (3.4-5.0); BILIRUBIN,TOTAL 0.5 mg/dL (0.2-1.0); CALCIUM, SERUM 8.7 mg/dL (8.5-10.1); CREATININE 0.6 mg/dL (0.6-1.3); TOTAL PROTEIN, SERUM 6.7 g/dL (6.4-8.2)
[2020-07-01] MEDS: BLOOD SUGAR DIAGNOSTIC 1 EACH STRIP IN SCH ×4 (07:37→21:39)
[2020-07-01] MEDS: INSULIN REGULAR, HUMAN 100 UNIT/ML 3 ML VIAL SQ PRN ×3 (07:40→17:19)
[2020-07-01 08:00] VITALS: BP 111/68
[2020-07-01] MEDS: DIVALPROEX SODIUM 250 MG TABLET.DR PO SCH ×3 (08:07→16:12)
[2020-07-01] MEDS: QUETIAPINE FUMARATE 25 MG TABLET PO SCH ×3 (08:14→16:12)
--- NOTE | 2020-07-01 09:05 | NUR ---
UR Note: Pts [employer] case managers, Harini ([phone] [phone]), called the SW and authorized an additional 2 days from 06/30-07/01 with an anticipated discharge date for 07/02/20.
--- NOTE | 2020-07-01 14:15 | NUR ---
[facility] Contact: RAJAN called Dr. Delfino Amaya ([phone]) and informed him that the pt is going to be discharged tomorrow and he stated that he will have someone pick pack worker the pt around 11.
--- NOTE | 2020-07-01 14:15 | NUR ---
Family Contact: SW contacted the pts brother, Camilo ([phone]), and informed him that the pt is going to be discharged tomorrow and the pts brother expressed contentment with the news.
[2020-07-01 16:00] VITALS: BP 128/55
[2020-07-01] MEDS: GLUCERNA SHAKE 237 ML CAN PO SCH (17:46)
--- NOTE | 2020-07-01 20:30 | NUR ---
GPS RN NOTES RECEIVED LYING COMFORTABLY ON BED,BREATHING REGULAR,NOT IN ANY FORM OF DISTRESS,DRESSING TO LEFT FORE ARM INTACT AND DRY.APPEARS DEPRESSED AND ISOLATED.WILL CONTINUE TO MONITOR FOR SUICIDAL IDEATION.FREQUENT ROUNDS OBSERVED PER PROTOCOL
[2020-07-01 20:33] VITALS: BP 115/71
[2020-07-01 21:00] VITALS: BP 115/71
[2020-07-01] MEDS: CEPHALEXIN MONOHYDRATE 250 MG CAPSULE PO SCH (21:39)
[2020-07-01] MEDS: QUETIAPINE FUMARATE 100 MG TABLET PO SCH (21:39)
[2020-07-01] MEDS: INSULIN GLARGINE, 100 UNIT/ML CARTRIDGE SQ SCH (21:58)
--- NOTE | 2020-07-01 22:00 | NUR ---
GPS RN NOTES ACCU-CHECK BLOOD SUGAR CHECK 128,NO HUMULIN R COVERAGE.LANTUS 10 UNITS GIVEN SQ ON RIGHT LOWER ABDOMEN PER PATIENT REQUEST.
--- NOTE | 2020-07-01 22:05 | NUR ---
GPS RN NOTES CLAIMED HE WANTS TO SLEEP EARLY,RESTORIL 7.5MG PO GIVEN ORDERED AND PER PATIENT REQUEST.
[2020-07-02] MEDS: BLOOD SUGAR DIAGNOSTIC 1 EACH STRIP IN SCH (07:56)
[2020-07-02 08:00] VITALS: BP 116/72
[2020-07-02] MEDS: DIVALPROEX SODIUM 250 MG TABLET.DR PO SCH (08:00)
[2020-07-02] MEDS: QUETIAPINE FUMARATE 25 MG TABLET PO SCH (08:48)
[2020-07-02] MEDS: CEPHALEXIN MONOHYDRATE 250 MG CAPSULE PO SCH (08:48)
[2020-07-02] MEDS: GLUCERNA SHAKE 237 ML CAN PO SCH (08:49)
--- NOTE | 2020-07-02 09:22 | NUR ---
Discharge Note: Pt will be discharged to a treatment center called [facility] located at [address] [place] [address]; ([phone]). Pts brother, Camilo ([phone]), was informed of the discharge. Dr. Delfino Amaya ([phone]), programming specialist, will arrive at 11am to strip picker the pt and take him to the treatment center. Upon discharge, the pt appears to be in a euthymic mood and presents with an anxious and flat affect. Pt appears to be alert and oriented x4 (time, place, self and situation). Pt denies both suicidal and homicidal ideation as well as auditory and visual hallucinations. Pt appears to be ambulatory with a steady gait. Pt appears to be groomed and appropriately dressed. Pt will continue to be under the care of psychiatrist, [place], [place] [address] [address]; . Pt will also be under the care of tag maker, Dr. Sterling Hauser, located at [address] [facility] [place] [address], [place] [address]; . Records were faxed to the recovery center to their efax: [phone]. The multidisciplinary exit care form was done, printed, signed, and given to the patient. Addendum: 07/02/20 at 1041 by RAJAN SIMPSON RAJAN provided the pt with smoking cessation referrals as well as psychiatrist referrals that are authorized through the pts insurance company.
[2020-07-02] MEDS ORDERED: DIVALPROEX SODIUM 250 MG TABLET.DR PO SCH ×2 (10:30→22:00)
--- NOTE | 2020-07-02 11:42 | NUR ---
MS/RN DISCHARGED PATIENT WAS DISCHARGED TO TREATMENT CENTER CALLED [facility], AN ACUTE [facility] IN STABLE CONDITION. ALL PERSONAL BELONGINGS ACCOUNTED AND SIGNED OFF FOR IN BELONGINGS LIST. EDUCATED PATIENT IN DISCHARGE INSTRUCTIONS/EXIT CARE. PATIENT VERBALIZED UNDERSTANDING. PATIENT APPEARS TO BE A/O X4. PATIENT DENIES BOTH SUICIDAL AND HOMICIDAL IDEATIONS WELL AUDITORY AND VISUAL HALLUCINATIONS. COPY OF DISCHARGE PAPERWORK/EXIT CARE GIVEN TO PATIENT ALONG WITH PRESCRIPTION MEDICATION. PATIENT LEFT UNIT FLOOR ACCOMPANIED BY RN IN STABLE CONDITION.
--- NOTE | 2020-07-02 12:10 | NUR ---
UR Note: RAJAN contacted Misael Groves, , and provided discharge clinical to Helena Cristina. Authorization # [id number]
[2020-07-02] MEDS ORDERED: DIVALPROEX SODIUM 500 MG TABLET.DR PO SCH (22:00)
== END 2020-07-02 11:42 | DRG 885 ==
LOC: GPS 15:43
PROVIDERS: ADMIT Psychiatry & Neurology Psychosomatic Medicine; ATTEND Family Medicine
DX: F25.9 Schizoaffective disorder, unspecified (principal); E11.65 Type 2 diabetes mellitus with hyperglycemia; F29 Unspecified psychosis not due to a substance or known physiological condition; F41.9 Anxiety disorder, unspecified; S61.512D Laceration without foreign body of left wrist, subsequent encounter; X78.9XXD Intentional self-harm by unspecified sharp object, subsequent encounter; M45.9 Ankylosing spondylitis of unspecified sites in spine; Z79.899 Other long term (current) drug therapy; Z91.5 Personal history of self-harm; F32.9 Major depressive disorder, single episode, unspecified
CPT/HCPCS: 36415; 80053-TC; 80061-TC; 80164-TC; 82962-TC; 85025-TC; J1815

== ENCOUNTER 2020-07-05 14:47 | Emergency (ER) | payer BC, OTHER ==
[~2020-07-05] VITALS: Ht 177.8 cm; Wt 72.6 kg
[~2020-07-05 14:47] MED LIST changes: +ACET-868 PO; +ALLA266C2 TP; +BLOO-668 IN; +DEXT50DI8 IV; +DIVA-76 PO; +DIVA-78 PO; +HYDR-4209 PO; +INSU100V3 SQ; +MAG30ORA PO; +MAGN400O6 PO; +QUET25TA PO
[2020-07-05 15:46] VITALS: BP 135/81
--- NOTE | 2020-07-05 16:11 | NUR ---
WOUND CLEANING AND DRESSING DONE BY AUTOMOBILE UPHOLSTERY TRIM INSTALLER.
--- NOTE | 2020-07-05 16:27 | NUR ---
Patient discharged to home in stable condition. Written and verbal after care instructions given. Patient verbalizes understanding of instruction.
== END 2020-07-05 16:28 | disposition home or self-care (01) ==
LOC: ER 14:52
DX: S61.512D Laceration without foreign body of left wrist, subsequent encounter (principal); Z79.899 Other long term (current) drug therapy; X58.XXXD Exposure to other specified factors, subsequent encounter
CPT/HCPCS: 99281; A6403

== ENCOUNTER 2021-01-04 11:02 | Emergency (ER) | payer BC ==
[~2021-01-04] VITALS: Ht 177.8 cm; Wt 74.8 kg
--- NOTE | 2021-01-04 11:14 | NUR ---
PT BIBS anxious, haven't sleep for 5 days, denies SI/HI AT THIS TIME. HX OF SI. CUT NOTED TO L WRIST FROM 5 MONTHS AGO OF SI ATTEMPT; SKIN INTACT NO INFECTION NOTED. PT COMPLIANT WITH CARE. SAFETY MEASURES IN PLACE.
[2021-01-04] MEDS ORDERED: LORA-259 PO (11:21)
[2021-01-04] MEDS ORDERED: LORAZEPAM 1 MG TABLET ONE ×2 (11:31→17:18)
[2021-01-04] MEDS: LORAZEPAM 1 MG TABLET PO ONE ×2 (11:34→17:22)
--- NOTE | 2021-01-04 11:37 | NUR ---
PT STATES HE WANTS TO BE ADMITTED. DR. ROBERTS AWARE. GENER CHARGE NURSE AWARE. WILL CALL [facility] FOR EVAL
--- NOTE | 2021-01-04 11:50 | NUR ---
BEHAVIORAL HEALTH CARE MANAGER AT BED UNABLE TO DRAW BLOOD; WILL ASK ANOTHER PHLEBOTMIST TO DRAW.
--- NOTE | 2021-01-04 11:54 | NUR ---
COVID SWAB COLLECTED AND SENT TO LAB
--- NOTE | 2021-01-04 12:05 | NUR ---
SPOKE TO CARMENCITA AREVALO ABOUT ADMISSION
--- NOTE | 2021-01-04 12:09 | NUR ---
URINE COLLECTED AND GIVEN TO LAB
[2021-01-04 12:15] LABS: BILIRUBIN,URINE Negative (NEGATIVE); COLOR,URINE YELLOW (YELLOW); LEUKOCYTE ESTERASE ,URINE Negative (NEGATIVE); NITRITE, URINE Negative (NEGATIVE); PH,URINE 6.5 (5.0-8.0); PROTEIN,URINE Negative (NEGATIVE); UGLUCOSE Negative (NEGATIVE); UROBILINOGEN,URINE 0.2 EU/dL (0.2)
[2021-01-04 12:16] LABS: BACTERIA,URINE None seen /HPF (None Seen); RBC,URINE 0-2 /HPF (0-2); SQUAMOUS EPITHELIAL CELL,UR None Seen /HPF (None Seen); WBC,URINE 0-2 /HPF (0-3)
--- NOTE | 2021-01-04 12:19 | NUR ---
CALLED PSY[facility] IF PT CAN BE ADMITTED WITH [facility]. [facility] WILL CALL BACK AND WILL F/U
--- NOTE | 2021-01-04 12:45 | NUR ---
CARMENCITA TOLENTINO AT PT'S BEDSIDE
--- NOTE | 2021-01-04 13:05 | NUR ---
RAJAN spoke with [facility] [[phone]] and [facility] is not able to admit pt. due to his insurance [[employer]]. Pt. is willing to go to [facility]. RAJAN faxed over clinical reports to [facility] [[phone]]. [facility] will review pt.'s packet to see if pt. is able to be admitted there. RAJAN will contact ED nurse once information is provided.
[2021-01-04 13:31] LABS: BASOPHILS % (AUTO) 0.3 % (0.0-2.0); EOSINOPHILS % (AUTO) 0.6 % (0.0-6.0); HEMATOCRIT 43 % (39-51); HEMOGLOBIN 14.1 g/dL (13.5-17.5); LYMPHOCYTES # (AUTO) 2.8 K/uL (0.8-4.8); LYMPHOCYTES % (AUTO) 19.7 % (20.0-44.0); MEAN CORPUSCULAR HGB CONC 33 g/dl (31.0-36.0); MEAN CORPUSCULAR VOLUME 91 fL (80-96); MONOCYTES # (AUTO) 0.6 K/uL (0.1-1.30); MONOCYTES % (AUTO) 4.3 % (2.0-12.0); NEUTROPHILS # (AUTO) 10.5 K/uL (1.8-8.9); NEUTROPHILS % (AUTO) 75.1 % (43.0-81.0); PLATELET COUNT (AUTO) 332 K/uL (150-450); RED BLOOD CELL COUNT(AUTO) 4.77 MIL/uL (4.5-6.0)
[2021-01-04 13:37] LABS: CARBON DIOXIDE 26 mmol/L (21-32); CHLORIDE 104 mmol/L (98-107); CREATININE 0.7 mg/dL (0.6-1.3); GLUCOSE 114 mg/dL (74-106); POTASSIUM 3.7 mmol/L (3.5-5.1); SODIUM SERUM 139 mmol/L (136-145); UREA NITROGEN, BLOOD 7 mg/dL (7-18)
[2021-01-04 13:43] LABS: ALANINE AMINOTRANSFERASE 16 U/L (12-78); ALBUMIN 3.8 g/dL (3.4-5.0); ALKALINE PHOSPHATASE 106 U/L (46-116); ASPARTATE AMINOTRANSFERASE 10 U/L (15-37); BILIRUBIN,DIRECT 0.1 mg/dL (0.0-0.2); BILIRUBIN,TOTAL 0.2 mg/dL (0.2-1.0); TOTAL PROTEIN, SERUM 8.5 g/dL (6.4-8.2)
[2021-01-04 13:47] LABS: ACETAMINOPHEN 0 ug/ml (10-30); ALCOHOL, BLOOD < 3 mg/dL (0-0)
--- NOTE | 2021-01-04 13:49 | NUR ---
PT EATING FOOD. ALL NEEDS MET AT THIS TIME. SAFETY MEASURES IN PLACE WITH 1:1 SITTER
--- NOTE | 2021-01-04 14:56 | NUR ---
SS Consult: SS consult for Anxiety. Pt. Is a 50-year-old male. Pt. demonstrates adequate insight to the reason for hospitalization. Per pt., he was brought to hospital by a friend due to sleep deprivation. Pt. was oriented x3, and alert. During interview, pt. was capable of following directions, made appropriate eye-contact, and appeared well-groomed. RAJAN explored pt.'s Hx of mental health and substance abuse. Pt. reported having Anxiety. Pt. denies SI/HI, AH/VH, paranoia or delusions. Per pt., he had SI thoughts about 5 months ago. Pt. mentioned that he was here at [facility] due to SI thoughts 5 months ago. Per pt., he no longer has SI thoughts, and have no plan on hurting self. RAJAN explored pt.'s living situation. Per pt., he lives is a [facility] [[address] [place] [id number]]. Pt. reported that everyone there is supportive. Per pt., he does not have a support system outside of the Psychiatric [facility]. Pt. mentioned that he is ambulatory but can only stand and walk on his own for 10 minutes. Per pt., he has a spine problem. Pt. does not use DME's. RAJAN explored pt.'s financial status. Per pt., he is not working nor receives any benefits. Per pt., he wants to go to [facility], but pt. does not meet the criteria. Pt. is willing to go to [facility]. RAJAN faxed clinical reports to [facility]. RAJAN is currently waiting to hear back to see if pt. meets criteria for [facility]. RAJAN provided Counseling Outpatient resources for pt. Per pt., he denied resources because he does not need them. Plan: RAJAN provided available resources and pt. denies interest at this time. RAJAN faxed clinical reports to [facility]. RAJAN is waiting for a response from [facility] to see if pt. meets criteria. Resources Provided, but denied: Counseling--Outpatient [facility] [address] [place] [address] (Specializes in in-depth psychotherapy for emotional distress: anxiety, depression, interpersonal conflicts, life transitions, childhood abuse) [address] [address] (Assist with solving problem marital difficulties, separation & divorce, aging parents, & grief, chronic & terminal illness) [facility] [address] [place] [address] (Deal with loss & grief, anxiety, marital difficulties) [facility] [address] [place] [id number] (Provide in-home mental services to people who are incapable of leaving their homes) [facility] [address] [place] [address] [facility] [address] [place] [address] PSYCHIATRIC OUTPATIENT SERVICES [facility] Partial Hospitalization and Intensive Outpatient Program (Managed Care and [place] Only)[id number] [facility] [phone] [facility] Partial Hospitalization and Outpatient [id number] [place], [place] [phone] [facility] [place] [id number] [place] [phone] [facility] and Outpatient [id number] Em[address]ita [facility] Joni Spivey [phone]
--- NOTE | 2021-01-04 15:55 | NUR ---
RAJAN faxed pt.'s clinical reports over to [facility] [Fax number:[phone]] to see if pt. meets the criteria.
[2021-01-04 18:30] VITALS: BP 129/81
--- NOTE | 2021-01-04 21:34 | NUR ---
PT REQUESTED FOR MEDICATION TO FALL ASLEEP. NOTIFIED LAW
[2021-01-04] MEDS ORDERED: QUETIAPINE FUMARATE 100 MG TABLET PO SCH (23:00)
--- NOTE | 2021-01-04 23:22 | NUR ---
PT LEFT HOSPITAL WITHOUT AMA OR D/C. PT ambulatory with a steady gait
== END 2021-01-04 23:52 | disposition home or self-care (01) ==
LOC: ER 11:07
DX: F30.9 Manic episode, unspecified (principal); Z20.822 Contact with and (suspected) exposure to COVID-19; F41.9 Anxiety disorder, unspecified; M45.9 Ankylosing spondylitis of unspecified sites in spine; Z53.29 Procedure and treatment not carried out because of patient's decision for other reasons
CPT/HCPCS: 36415; 80048; 80076; 80143; 80307; 80320; 81001; 85025; 87426; 99285; C9803; G0480